=== PATIENT | female | born 1985 | race Caucasian/White ===

== ENCOUNTER 2016-12-06 07:15 | Emergency (ER) | payer OTHER ==
[~2016-12-06] VITALS: Ht 162.6 cm; Wt 79.8 kg
[~2016-12-06 07:15] MED LIST: MOTRIN 600 MG600 MG PO; PROTONIX 40MG T40 MG PO; VICODIN5-300 PO; ZOFRAN 4 MG TABL4 MG PO; ZOFRAN ODT4 MG PO
[2016-12-06 07:19] VITALS: BP 123/85
--- NOTE | 2016-12-06 07:39 | ED HAND/WRIST INJURY COMPLAINT ---
History of Present Illness General Chief Complaint: Hand or Wrist Injury Stated Complaint: R WRIST INJURY Source: patient Exam Limitations: no limitations Vital Signs & Intake/Output Vital Signs & Intake/Output Vital Signs Date Time Temp Pulse Resp B/P Pulse O2 O2 Flow FiO2 Ox Delivery Rate 12/06 0801 Room Air Room Air 12/06 0719 97.6 73 20 123/85 100 Room Air Allergies Coded Allergies: NO KNOWN ALLERGIES (05/20/15) Reconcile Medications No Known Home Medications Triage Note: PT TO ED C/O RIGHT HAND/WRIST/THUMB PAIN. STATES SHE FELL DOWN THE STAIRS YESTERDAY AND BENT HER THUMB BACK. THIS AM PAIN WAS WORSE. PT TOOK MOTRIN AT 0530 THIS AM. 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 SOME SWELLING AND BRUISING NOTED. Triage Nurses Notes Reviewed? yes : No Patient currently breastfeeds: No HPI: Patient presents for evaluation of injury sustained status post fall at home yesterday. Ration states that she stumbled going down stairs and tried to catch herself on the handrail. She hyperextended her right thumb in the process. The pain is a constant throbbing severe pain gets worse with movement and palpation. It is described as a 7 out of 10 in intensity. Past History Travel History Traveled to [place] past 21 day No Medical History Any Pertinent Medical History? 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 No Review of Systems Review of Systems Constitutional: Reports: no symptoms. EENTM: Reports: no symptoms. Respiratory: Reports: no symptoms. Cardiovascular: Reports: no symptoms. GI: Reports: no symptoms. Genitourinary: Reports: no symptoms. Musculoskeletal: Reports: see HPI. Skin: Reports: no symptoms. Neurological/Psychological: Reports: no symptoms. Hematologic/Endocrine: Reports: no symptoms. Immunologic/Allergic: Reports: no symptoms. All Other Systems: Reviewed and Negative Physical Exam Physical Exam Hand Left: normal inspection Hand Right: normal inspection Comments: Gen.: Well-nourished, well-developed, no acute respiratory distress. Head: Normocephalic, atraumatic. Eyes: Normal inspection bilaterally Ears: Normal inspection bilaterally Nose: Normal inspection, nasal cannula in place Throat/mouth : Moist mucosa Neck: Supple, full range of motion, no goiter Heart: Regular rate and rhythm Lungs: Quiet respirations Back: Normal range of motion Extremities: Right hand: Tenderness with palpation to the base of the right thumb and over the anatomic snuffbox, no ecchymoses soft tissue swelling or erythema. Sensation is intact to light touch, no loss of tendon function. Normal capillary refill. Normal radial pulse. Neurologic: Cranial nerves grossly intact, speech is clear Skin: warm and dry Psychiatric: Calm, cooperative, no apparent delusions or hallucinations Progress Differential Diagnosis: FX,SPRAIN,DISLOCATION Plan of Care: Orders Procedure Date/time Status Durable Medical Equipment 12/06 835 Active Diagnostic Imaging: Discussed w/RAD: Radiology Read. Radiology Impression: PATIENT: COLE SALCIDO PRESENT AGE: 31 PATIENT ACCOUNT NO: [id number] : 86 LOCATION: [facility] ORDERING PHYSICIAN: JOSE MARTIN CONSTANTINO MD SERVICE DATE: 12/06/16 EXAM TYPE: RAD - XRY-HAND, RIGHT; XRY-WRIST COMPLETE-RIGHT EXAMINATION: XR HAND, RIGHT XR WRIST, RIGHT CLINICAL INFORMATION: Status post fall with tenderness at the base of the right thumb. COMPARISON: 11/25/2010 and 12/01/2010 TECHNIQUE: AP, lateral, and oblique views of the right hand and AP, lateral, oblique, and scaphoid views of the right wrist. FINDINGS: RIGHT HAND: Previously seen fracture at the right fifth metacarpal base has healed. The bones and soft tissues are otherwise normal. No acute fracture. Alignment is anatomic. Joint spaces are maintained. No erosions or soft tissue calcifications. RIGHT WRIST: Mild soft tissue swelling is present around the base of the thumb on the first CMC joint. The bones and soft tissues are otherwise normal. No fracture. Alignment is anatomic. Joint spaces are maintained. No erosions or soft tissue calcifications. IMPRESSION: Mild soft tissue swelling near the first CMC joint. No fracture or malalignment. Right wrist and hand are otherwise unremarkable. 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 <Electronically signed in Other Vendor System> SIGNED BY: MELISSA RIZZO MD 12/06/16 0819 Departure Departure Disposition: HOME OR SELF CARE Condition: Stable Clinical Impression Primary Impression: Sprain of right thumb Qualifiers: Encounter type: initial encounter Sprain of finger site: metacarpophalangeal joint Qualified Code: S63.641A - Sprain of metacarpophalangeal joint of right thumb, initial encounter Secondary Impressions: Right wrist sprain Qualifiers: Encounter type: initial encounter Qualified Code: S63.501A - Unspecified sprain of right wrist, initial encounter Referrals: BATSHEVA LEACH MD (PCP/Family) Additional Instructions: Ice and elevation over the next 48 hours. Wrist and thumb splint as needed. Follow-up with your primary care doctor in one week if not improving. Return if any concerns or sudden worsening. Please note that there might be incidental findings in your evaluation that are unrelated to the current emergency department visit. Please notify your primary care doctor about this emergency department visit in order to obtain and review all of the testing performed so that these incidental findings can be monitored as needed. If you had an x-ray performed, please understand that some fractures may not be seen on the initial set of x-rays. If your symptoms persist you might need a repeat set of x-rays to check for such a fracture. If you had a laceration evaluated, please understand that foreign bodies such as glass or wood may not be visible to the naked eye or on plain x-rays. If the wound becomes red, swollen, increasingly more painful or if there is any drainage from the wound, please have it reevaluated by a physician for the possibility of a retained foreign body. Thank you for choosing the [facility] for your care. It was a pleasure to serve you today. Jose Martin Constantino M.D. [facility] Departure Forms: Customer Survey General Discharge Information Prescriptions: Current Visit Scripts No Known Home Medications
--- NOTE | 2016-12-06 08:19 | RADIOLOGY REPORT ---
EXAMINATION: XR HAND, RIGHT XR WRIST, RIGHT CLINICAL INFORMATION: Status post fall with tenderness at the base of the right thumb. COMPARISON: 11/25/2010 and 12/01/2010 TECHNIQUE: AP, lateral, and oblique views of the right hand and AP, lateral, oblique, and scaphoid views of the right wrist. FINDINGS: RIGHT HAND: Previously seen fracture at the right fifth metacarpal base has healed. The bones and soft tissues are otherwise normal. No acute fracture. Alignment is anatomic. Joint spaces are maintained. No erosions or soft tissue calcifications. RIGHT WRIST: Mild soft tissue swelling is present around the base of the thumb on the first CMC joint. The bones and soft tissues are otherwise normal. No fracture. Alignment is anatomic. Joint spaces are maintained. No erosions or soft tissue calcifications. IMPRESSION: Mild soft tissue swelling near the first CMC joint. No fracture or malalignment. Right wrist and hand are otherwise unremarkable.
== END 2016-12-06 08:50 ==
LOC: ERH 07:15
DX: S63.601A Unspecified sprain of right thumb, initial encounter (principal); S63.501A Unspecified sprain of right wrist, initial encounter; W19.XXXA Unspecified fall, initial encounter; Y92.009 Unspecified place in unspecified non-institutional (private) residence as the place of occurrence of the external cause
CPT/HCPCS: 73110-RT; 73130-RT